=== PATIENT | female | born 1945 | race Caucasian/White ===

== ENCOUNTER 2021-03-13 13:39 | Inpatient (IN) | payer OTHER ==
[~2021-03-13] VITALS: Ht 157.5 cm; Wt 55.3 kg
[2021-03-13] VITALS (24 sets, daily range): BP systolic 90–173; BP diastolic 48–122
[~2021-03-13 13:39] MED LIST: PANTOPRAZOLE 80 MG in IV NS 0.9% 500 ML IV SCH
--- NOTE | 2021-03-13 13:40 | NUR ---
[id number] FOR AMS AFTER EATING LUNCH. LKW 1307. PATIENT OBTUNDED. ON 15LPM VIA NRB ON ARRIVAL. ASSISTED TO BED 8, ATTACHED TO THE SOFTWARE SOLUTIONS ARCHITECT. DR. DODSON AT BEDSIDE.
--- NOTE | 2021-03-13 13:45 | NUR ---
PREP FOR INTUBATION, MARSHALL AND ETOMIDATE GIVEN
--- NOTE | 2021-03-13 13:46 | NUR ---
INTUBATED SIZE 7.5 22CM ON THE LIP, + COLOR CHANGE, BILATERAL CHEST RISE.
[2021-03-13] MEDS ORDERED: PROPOFOL 100 ML ONE (13:48)
--- NOTE | 2021-03-13 13:51 | NUR ---
PATIENT TAKEN TO CT.
[2021-03-13] MEDS ORDERED: IOHEXOL-350 100 ML VIAL IV ONE (13:53)
[2021-03-13] MEDS ORDERED: CT SWABBABLE VALVE TRANS SET 1 EA INFUS.SET MC ONE (13:53)
[2021-03-13] MEDS ORDERED: IV NS 0.9% 250 ML IV ONE (13:54)
[2021-03-13 13:55] LABS: BASOPHILS # (AUTO) 0.1 K/uL (0.0-0.2); BASOPHILS % (AUTO) 0.9 % (0.0-2.0); EOSINOPHILS % (AUTO) 1.8 % (0.0-6.0); HEMATOCRIT 35 % (33-45); HEMOGLOBIN 11.6 g/dL (11.5-14.8); LYMPHOCYTES # (AUTO) 1.9 K/uL (0.8-4.8); LYMPHOCYTES % (AUTO) 20.2 % (20.0-44.0); MEAN CORPUSCULAR HGB CONC 33 g/dl (31.0-36.0); MEAN CORPUSCULAR VOLUME 91 fL (82-100); MONOCYTES # (AUTO) 0.9 K/uL (0.1-1.30); MONOCYTES % (AUTO) 10.1 % (2.0-12.0); NEUTROPHILS # (AUTO) 6.3 K/uL (1.8-8.9); PLATELET COUNT (AUTO) 480 K/uL (150-450); RED BLOOD CELL COUNT(AUTO) 3.84 MIL/uL (4.0-5.2); WHITE BLOOD COUNT (AUTO) 9.3 K/uL (4.3-11.0)
[2021-03-13] MEDS ORDERED: ACET-868 PO (13:58)
[2021-03-13] MEDS ORDERED: BACL10TA PO (13:58)
[2021-03-13] MEDS ORDERED: PANT40TA2 PO (13:58)
[2021-03-13] MEDS ORDERED: AMLO5TAB4 PO (13:58)
[2021-03-13] MEDS ORDERED: CYAN-51 PO (13:58)
[2021-03-13] MEDS ORDERED: MIRT7.5T10 PO (13:58)
[2021-03-13] MEDS ORDERED: ASCO-352 PO (13:58)
[2021-03-13] MEDS ORDERED: HYDR-4076 PO (13:58)
[2021-03-13] MEDS ORDERED: POLY17PO4 PO (13:58)
[2021-03-13] MEDS ORDERED: LEVE250T2 PO (13:58)
[2021-03-13] MEDS ORDERED: CLON0.5T4 PO (13:58)
[2021-03-13] MEDS ORDERED: LIDO30CR47 TP (13:58)
[2021-03-13] MEDS ORDERED: FERR325T23 PO (13:58)
[2021-03-13] MEDS ORDERED: FOLI0.4T6 PO (13:58)
[2021-03-13] MEDS ORDERED: SUCR1TAB PO (13:58)
[2021-03-13] MEDS ORDERED: ATOR40TA PO (13:58)
[2021-03-13] MEDS ORDERED: IPRA3AMP23 IH (13:58)
[2021-03-13] MEDS ORDERED: CARV6.252 PO (13:58)
[2021-03-13] MEDS ORDERED: QUET50TA PO (13:58)
[2021-03-13] MEDS ORDERED: APIX5TAB PO (13:58)
[2021-03-13] MEDS ORDERED: GABA-532 PO (13:58)
[2021-03-13 14:01] LABS: CARBON DIOXIDE 26 mmol/L (21-32); CHLORIDE 106 mmol/L (98-107); POTASSIUM 3.4 mmol/L (3.5-5.1); SODIUM SERUM 143 mmol/L (136-145)
[2021-03-13] MEDS ORDERED: COVI30VI IM (14:03)
[2021-03-13 14:07] LABS: GLUCOSE 176 mg/dL (74-106); UREA NITROGEN, BLOOD 20 mg/dL (7-18)
[2021-03-13 14:08] LABS: ALANINE AMINOTRANSFERASE 54 U/L (12-78); ALBUMIN 3.7 g/dL (3.4-5.0); ALKALINE PHOSPHATASE 162 U/L (46-116); ASPARTATE AMINOTRANSFERASE 58 U/L (15-37); BILIRUBIN,DIRECT 0.1 mg/dL (0.0-0.2); BILIRUBIN,TOTAL 0.3 mg/dL (0.2-1.0); CREATININE 1.3 mg/dL (0.6-1.3); TOTAL PROTEIN, SERUM 7.2 g/dL (6.4-8.2)
--- NOTE | 2021-03-13 14:20 | NUR ---
RT NOTE PT INTUBATED PER ER MD ORDER. 7.5 ETT @ 22 CM. CUFF INFLATED. ETT SECURE. BILATERAL CHEST RISE NOTED. VENTILATOR SETTINGS FOLLOW; AC 16 450 100% +5. AMBU BAG AT BED SIDE. ALARMS SET PER PROTOCOL AND AUDIBLE. VENTILATOR PLUGGED IN TO RED OUTLET. Addendum: 03/13/21 at 1423 by CALDERON SEXTON RT Amended: Links added.
[2021-03-13] MEDS ORDERED: LABETALOL 20 MG/4 ML VIAL IV ONE (14:30)
[2021-03-13] MEDS ORDERED: ROCURONIUM BROMIDE 50 MG/5 ML IV ONE ×2 (14:30→17:52)
[2021-03-13] MEDS ORDERED: ETOMIDATE 2 MG/ML VIAL IV ONE ×2 (14:30→17:52)
[2021-03-13] MEDS ORDERED: LEVETIRACETAM (500MG) 1,000 MG in IV NS 0.9% 100 ML IV SCH (14:30)
[2021-03-13] MEDS ORDERED: LORAZEPAM INJ 2 MG/ML VIAL IVP ONE (14:30)
[2021-03-13] MEDS ORDERED: LABETALOL HCL IV 100MG VIAL ONE (14:34)
[2021-03-13] MEDS ORDERED: LORAZEPAM INJ 2 MG/ML VIAL ONE (14:34)
--- NOTE | 2021-03-13 14:42 | NUR ---
DR. ORTIZ AT BEDSIDE.
--- NOTE | 2021-03-13 14:45 | NUR ---
NURSING SUP GAVE ICU BED 257.
--- NOTE | 2021-03-13 14:50 | NUR ---
BILL, SON CALLED ASKING ABOUT PT.
--- NOTE | 2021-03-13 14:56 | NUR ---
SECONDARY NUMBER FOR MANA DEMPSEY
--- NOTE | 2021-03-13 14:59 | NUR ---
RECEIVED ORDER FROM DR. ORTIZ TO INSERT NG-TUBE. NG-TUBE FR 16 INSERTED ON RIGHT NOSTRIL, TAPED AT 52CM ON THE NOSE TIP. PLACEMENT VERIFIED BY 2 NURSES.
[2021-03-13] MEDS ORDERED: ACETAMINOPHEN 325 MG TABLET PO PRN (15:00)
[2021-03-13] MEDS ORDERED: AMLODIPINE BESYLATE 5 MG TABLET PO SCH (15:00)
[2021-03-13 15:01] LABS: CHOLESTEROL 153 mg/dL (<200); HDL CHOLESTEROL 70 mg/dL (40-60); LDL 61 mg/dL (0-99); TRIGLYCERIDES 110 mg/dL (30-150)
[2021-03-13 15:08] LABS: ABG BASE EXCESS -1.5 mmol/L; ABG OXYGEN SATURATION 98.2 % (92.0-98.5); ABG PCO2 42.2 mmHg (35.0-45.0); ABG PH 7.369 (7.350-7.450); ABG PO2 177.5 mmHg (75.0-100.0); AaDO2 493.3 mmHg; COHb 0.3 % (0.5-1.5); MetHb 0.5 % (0.0-1.5); O2Hb 97.4 % (94.0-97.0); SITE, ABG Right Radial; VENT MODE, BG AC 16 450 100% +5
--- NOTE | 2021-03-13 15:11 | NUR ---
CALLED ICU TWICE, NURSE IS NOT AVAILABLE FOR REPORT.
--- NOTE | 2021-03-13 15:20 | NUR ---
DR. ORTIZ AT BEDSIDE FOR EVAL. ADMISSION ORDERS IN PLACED.
--- NOTE | 2021-03-13 15:29 | NUR ---
REPORT GIVEN TO KALLIE CEDEÑO FOR MIGUEL.
[2021-03-13] MEDS ORDERED: LABETALOL 20 MG/4 ML VIAL IV PRN (15:30)
[2021-03-13] MEDS ORDERED: IPRATROPIUM NEB FS 0.5 MG/2.5 ML AMPUL.NEB NEB PRN (16:00)
[2021-03-13] MEDS ORDERED: ALBUTEROL FS 2.5 MG/0.5 ML VIAL.NEB HHN PRN (16:00)
--- NOTE | 2021-03-13 16:00 | NUR ---
STONE PROCESSING MACHINE OPERATOR NOTES PATIENT ADMITTED FROM ER ETT/MECHANICAL VENT, NO SEDATION AT THIS TIME ACCORDING DR ORTIZ'S ORDER. PATIENTABLE TO MOVES LEGS AND ARMS WHEN TOUCHED. HR ON MONITOR SHOWS- SR- 57, BP -118/64. SKIN ASSESSMENT DONE, PICTURE TAKEN. NGT INTACT, AND CLAMPED. ARSHAD DRAINING LIGHT YELLOW OUTPUT. RECHECKED CIRCULATION BILATERAL WRIST. BED LACKED, SAFETY PRECAUTION MAINTAINED ALL THE TIME. WILL MONITORING.
--- NOTE | 2021-03-13 16:02 | NUR ---
PATIENT TRANSFERRED TO ICU ROOM 257 IN STABLE CONDITION. PATIENT REMAINS INTUBATED, OBTUNDED. NO SEDATIVE NEEDED AT THIS TIME, DR. ORTIZ AWARE. ENDORSED TO KALLIE CEDEÑO FOR MIGUEL.
[2021-03-13] MEDS: IV D5/0.45 NACL 1,000 ML IV PRN (16:45)
[2021-03-13] MEDS: PANTOPRAZOLE 40 MG VIAL IV SCH (16:48)
[2021-03-13] MEDS: SUCRALFATE 1 G TABLET NG SCH ×2 (16:49→17:00)
[2021-03-13] MEDS: PIPERACILLIN /TAZOBACTAM 3.375 G in IV D5W 50 ML IV SCH (16:56)
[2021-03-13] MEDS ORDERED: SUCRALFATE 1 G TABLET PO SCH (17:00)
[2021-03-13] MEDS ORDERED: LEVETIRACETAM (250 MG) 250 MG TABLET PO ONE (17:00)
[2021-03-13] MEDS ORDERED: APIXABAN 5 MG TABLET PO SCH (17:00)
[2021-03-13] MEDS ORDERED: CARVEDILOL 6.25 MG TABLET PO SCH (17:00)
--- NOTE | 2021-03-13 18:43 | NUR ---
RN NOTES PM CARE DONE , ADMINISTERED SCHEDULED MEDICATION, INFUSING D51/2 NS AT 100 ML/HR, ON LEFT HAND INTACT. PATIENT HAS NO SEDATION, NO ACUTE RESPIRATORY DISTRESS. ASSIST TURN AND REPOSTION. ENDORSED ONCOMING NURSE FOLLOW PLAN OF CARE.
--- NOTE | 2021-03-13 20:00 | NUR ---
RN NOTE PT RECEIVED IN BED INTUBATED, PT IS RESPONSIVE TO TOUCH, SATING 100%. PT MOUTH SUCTIONED AND REMOVED PIECES OF FOOD FROM MOUTH.PT HAS NG TUBE CLAMPED CHECKED FOR REPLACEMENT, BENCH ASSEMBLER BATTERY SHOWING SR WITH HR IN 60s.
--- NOTE | 2021-03-13 20:45 | NUR ---
PT BECAME VERY AGITATED ,TRYING TO SIT UP,SLIDING UP AND DOWN , INFORMED NED ALEJO REGARDING PT SITUATION AND PER DR MARINO NOTIFY DR NICHOLS .
[2021-03-13] MEDS ORDERED: LEVETIRACETAM (250 MG) 250 MG TABLET PO SCH (21:00)
--- NOTE | 2021-03-13 21:00 | NUR ---
PT BECAME VERY AGITATED ,TRYING TO SIT UP,SLIDING UP AND DOWN , INFORMED DR NICHOLS AND RECEIVED ORDER FOR PROPOFOL.
[2021-03-13] MEDS: PROPOFOL 100 ML IV PRN (21:25)
[2021-03-14] VITALS (34 sets, daily range): BP systolic 109–156; BP diastolic 43–97
[2021-03-14 00:59] LABS: BILIRUBIN,URINE NEGATIVE (NEGATIVE); COLOR,URINE YELLOW (YELLOW); LEUKOCYTE ESTERASE ,URINE NEGATIVE (NEGATIVE); NITRITE, URINE NEGATIVE (NEGATIVE); PH,URINE 6.5 (5.0-8.0); PROTEIN,URINE 30 mg/dl (NEGATIVE); UGLUCOSE NEGATIVE (NEGATIVE); UROBILINOGEN,URINE 0.2 EU/dL (0.2)
[2021-03-14 01:32] LABS: BACTERIA,URINE None seen /HPF (None Seen); WBC,URINE 0-2 /HPF (0-3)
[2021-03-14 01:33] LABS: MUCUS,URINE Few /LPF (None Seen); SQUAMOUS EPITHELIAL CELL,UR None Seen /HPF (None Seen)
[2021-03-14] MEDS: IV D5/0.45 NACL 1,000 ML IV PRN ×2 (02:00→12:01)
[2021-03-14 04:35] LABS: BASOPHILS % (AUTO) 0.4 % (0.0-2.0); EOSINOPHILS % (AUTO) 1.2 % (0.0-6.0); HEMATOCRIT 26 % (33-45); HEMOGLOBIN 8.9 g/dL (11.5-14.8); LYMPHOCYTES # (AUTO) 0.7 K/uL (0.8-4.8); LYMPHOCYTES % (AUTO) 6.3 % (20.0-44.0); MEAN CORPUSCULAR HGB CONC 34 g/dl (31.0-36.0); MEAN CORPUSCULAR VOLUME 91 fL (82-100); MONOCYTES # (AUTO) 0.7 K/uL (0.1-1.30); MONOCYTES % (AUTO) 7.1 % (2.0-12.0); PLATELET COUNT (AUTO) 353 K/uL (150-450); RED BLOOD CELL COUNT(AUTO) 2.88 MIL/uL (4.0-5.2); WHITE BLOOD COUNT (AUTO) 10.5 K/uL (4.3-11.0)
[2021-03-14 04:53] LABS: ALBUMIN 2.6 g/dL (3.4-5.0); BILIRUBIN,TOTAL 0.4 mg/dL (0.2-1.0); CALCIUM, SERUM 7.9 mg/dL (8.5-10.1); TOTAL PROTEIN, SERUM 5.3 g/dL (6.4-8.2)
[2021-03-14 05:03] LABS: MAGNESIUM 1.2 mg/dL (1.8-2.4); POTASSIUM 2.4 mmol/L (3.5-5.1)
--- NOTE | 2021-03-14 05:30 | NUR ---
RECEIVED CRITICAL LAB FOR K 2.4 AND MG 1.2. INFORMED DR HAMPTON AND RECEIVED ORDER FOR 4 BAGS OF K, AND 4 BAGS OF MG. PER GIVE MG FIRST.
[2021-03-14] MEDS: Magnesium 1GM/D5W 100ML PREMIX 100 ML IV SCH ×4 (06:02→09:46)
[2021-03-14] MEDS: PIPERACILLIN /TAZOBACTAM 3.375 G in IV D5W 50 ML IV SCH ×5 (06:09→23:29)
[2021-03-14] MEDS: PROPOFOL 100 ML IV PRN (06:57)
--- NOTE | 2021-03-14 07:11 | NUR ---
RN NOTE REPORT GIVEN TO ONCOMING SHIFT FOR MIGUEL.
[2021-03-14] MEDS ORDERED: ACETAMINOPHEN LIQUID 325 MG/10.1 ML UDC NG PRN (07:30)
[2021-03-14] MEDS: POTASSIUM CL. PREMIX PERIPHER. 50 ML IV SCH ×4 (07:50→10:47)
[2021-03-14] MEDS ORDERED: POTASSIUM CHLORIDE 10 MEQ/50 ML PREMIXED IVPB FOR PERIPHERAL LINE IV ONE (09:00)
[2021-03-14] MEDS ORDERED: POTASSIUM CHLORIDE 20 MEQ POWDER PACKET NG ONE (09:00)
[2021-03-14] MEDS ORDERED: DC PROPOFOL WHEN EXTUBATED XX PRN (09:00)
[2021-03-14] MEDS ORDERED: Magnesium 1GM/D5W 100ML PREMIX 100 ML IV SCH (09:00)
[2021-03-14] MEDS ORDERED: LEVETIRACETAM SOL (5 ML) 100 MG/ML UDC NG SCH (09:00)
[2021-03-14] MEDS: CARVEDILOL 6.25 MG TABLET NG SCH ×2 (09:00→17:22)
[2021-03-14 09:09] LABS: ABG OXYGEN SATURATION 97.8 % (92.0-98.5); ABG PCO2 39.7 mmHg (35.0-45.0); ABG PO2 111.8 mmHg (75.0-100.0); AaDO2 127.7 mmHg; COHb 0.3 % (0.5-1.5); MetHb 0.2 % (0.0-1.5); O2Hb 97.3 % (94.0-97.0); PEEP,BG 5 cm H2O; SITE, ABG Right Radial; VT, ABG 450 mL
[2021-03-14] MEDS: SUCRALFATE 1 G/10 ML UDC NG SCH ×2 (09:17→17:22)
[2021-03-14] MEDS: PANTOPRAZOLE 40 MG VIAL IV SCH (09:18)
[2021-03-14] MEDS: AMLODIPINE BESYLATE 5 MG TABLET NG SCH (09:22)
[2021-03-14] MEDS: APIXABAN 5 MG TABLET NG SCH ×2 (09:25→17:23)
--- NOTE | 2021-03-14 09:39 | NUR ---
on weaning trial per dr. pascual. simv 4 ps 15 peep+5 fio2 40%. pt. is awake and follow commands. Addendum: 03/14/21 at 0941 by JAQUELINE DEE RT Amended: Links added.
--- NOTE | 2021-03-14 09:49 | NUR ---
RN NOTE 0715: Received patient with ETT to vent, no respiratory distress noted at this time. On Diprivan @ 25mcg, able to arouse through voice. SB 50's on the monitor. With YVETTE midline intact. Right NGT intact, clamped. Mg supp ongoing. IVF infusing as ordered. 0850: S/E by Dr. Melissa, with order of additional K supp. 0910: S/E by Dr. Watkins and Dr. Melissa, Turned off Diprivan totally per for plan of weaning. 0930: S/E by , patient is able to follow commands. Placed by RT to SIMV mode. 0955: ABG resulted, aware, with order of extubation. 1000: RT extubated patient, patient has garbled voice but understandable when repeated. Able to cough. 1015: Son at bedside, updated re: patient. Patietn does not remeber what happened, son reoriented her. Removed LOOP CUTTER restraints, informed not to remove her NGT.
[2021-03-14 09:56] LABS: ABG BASE EXCESS -0.9 mmol/L; ABG PH 7.418 (7.350-7.450); ABG PO2 127.1 mmHg (75.0-100.0); AaDO2 115.6 mmHg; COHb 0.2 % (0.5-1.5); MetHb 0.3 % (0.0-1.5); O2Hb 97.5 % (94.0-97.0); PEEP,BG 5 cm H2O; SITE, ABG Right Femoral; VENT MODE, BG SIMV 4 / PS 15; VT, ABG 450 mL
--- NOTE | 2021-03-14 10:00 | NUR ---
pt. is awake and follow commands extubated @ [address] into nasal cannula @ 1 lpm o2 flow. spo2 99% rate 18 hr 73 bpm no increase work of breathing noted. Addendum: 03/14/21 at 1011 by JAQUELINE DEE RT Amended: Links added.
--- NOTE | 2021-03-14 19:15 | NUR ---
MOTOR BRAKEMAN PT REQUESTING TO S/W DAUGHTER IVONNE. CALL PLACED TO DAUGHTER. PT LOOKING FOR EYE GLASSES NOT DOCUMENTED IN BELONGINGS. CALLED [facility] AND THEY ARE UNABLE TO CHECK ROOM STATING IT WAS LOCKED BY GIS PROGRAMMER. PER PT DAUGHTER WILL CALL [facility] WELL.
[2021-03-14] MEDS: LEVETIRACETAM SOL (5 ML) 100 MG/ML UDC PO SCH (21:04)
--- NOTE | 2021-03-14 22:00 | NUR ---
CALIBRATION TESTER PT SLEEPING DECLINES TO TURN.
[2021-03-14] MEDS ORDERED: INSULIN REGULAR, HUMAN 100 UNIT/ML 3 ML VIAL SQ PRN (22:30)
[2021-03-14] MEDS ORDERED: DEXTROSE 50%-WATER 50 ML DISP.SYRIN IV PRN (22:30)
[2021-03-15] VITALS (14 sets, daily range): BP systolic 104–144; BP diastolic 43–73
[2021-03-15] MEDS: IV D5/0.45 NACL 1,000 ML IV PRN (01:30)
[2021-03-15 04:20] LABS: BASOPHILS % (AUTO) 0.3 % (0.0-2.0); EOSINOPHILS % (AUTO) 0.9 % (0.0-6.0); HEMATOCRIT 27 % (33-45); LYMPHOCYTES # (AUTO) 0.9 K/uL (0.8-4.8); LYMPHOCYTES % (AUTO) 6.6 % (20.0-44.0); MEAN CORPUSCULAR HGB CONC 34 g/dl (31.0-36.0); MEAN CORPUSCULAR VOLUME 89 fL (82-100); MONOCYTES % (AUTO) 7.3 % (2.0-12.0); NEUTROPHILS # (AUTO) 12.1 K/uL (1.8-8.9); NEUTROPHILS % (AUTO) 84.9 % (43.0-81.0); PLATELET COUNT (AUTO) 379 K/uL (150-450); RED BLOOD CELL COUNT(AUTO) 2.97 MIL/uL (4.0-5.2); WHITE BLOOD COUNT (AUTO) 14.2 K/uL (4.3-11.0)
[2021-03-15 04:44] LABS: ALANINE AMINOTRANSFERASE 32 U/L (12-78); ALBUMIN 2.5 g/dL (3.4-5.0); ALKALINE PHOSPHATASE 112 U/L (46-116); ASPARTATE AMINOTRANSFERASE 23 U/L (15-37); BILIRUBIN,TOTAL 0.6 mg/dL (0.2-1.0); CALCIUM, SERUM 7.8 mg/dL (8.5-10.1); CARBON DIOXIDE 29 mmol/L (21-32); CHLORIDE 107 mmol/L (98-107); CREATININE 1.1 mg/dL (0.6-1.3); GLUCOSE 108 mg/dL (74-106); MAGNESIUM 1.6 mg/dL (1.8-2.4); PHOSPHORUS 2.6 mg/dL (2.5-4.9); POTASSIUM 2.9 mmol/L (3.5-5.1); SODIUM SERUM 141 mmol/L (136-145); TOTAL PROTEIN, SERUM 5.6 g/dL (6.4-8.2); UREA NITROGEN, BLOOD 9 mg/dL (7-18)
[2021-03-15] MEDS: PIPERACILLIN /TAZOBACTAM 3.375 G in IV D5W 50 ML IV SCH ×3 (05:05→18:14)
[2021-03-15] MEDS ORDERED: BLOOD SUGAR DIAGNOSTIC 1 EACH STRIP IN SCH (07:30)
[2021-03-15] MEDS: SUCRALFATE 1 G/10 ML UDC NG SCH ×2 (08:52→18:01)
[2021-03-15] MEDS: POTASSIUM CHLORIDE 20 MEQ POWDER PACKET NG SCH ×3 (08:52→10:37)
[2021-03-15] MEDS: PANTOPRAZOLE 40 MG/PACK PACK NG SCH (08:52)
[2021-03-15] MEDS: LEVETIRACETAM SOL (5 ML) 100 MG/ML UDC PO SCH ×2 (08:52→21:13)
[2021-03-15] MEDS: CARVEDILOL 6.25 MG TABLET NG SCH ×2 (08:53→18:01)
[2021-03-15] MEDS: AMLODIPINE BESYLATE 5 MG TABLET NG SCH (08:53)
[2021-03-15] MEDS: Magnesium 1GM/D5W 100ML PREMIX 100 ML IV SCH ×2 (08:56→10:16)
[2021-03-15] MEDS: APIXABAN 5 MG TABLET NG SCH ×2 (08:56→18:05)
[2021-03-15] MEDS ORDERED: Magnesium 1GM/D5W 100ML PREMIX 100 ML IV SCH (09:00)
[2021-03-15] MEDS ORDERED: IV NS 0.9% 250 ML IV ONE (09:28)
[2021-03-15] MEDS ORDERED: IOHEXOL-300 100 ML VIAL IV ONE (09:28)
[2021-03-15] MEDS ORDERED: POTASSIUM CHLORIDE 20 MEQ POWDER PACKET PO ONE (09:30)
--- NOTE | 2021-03-15 11:15 | NUR ---
MS RN NOTE PATIENT RECEIVED FROM ICU ENDORSED AND ACCOMPANIED BY GALA PATEL VIA WHEELCHAIR. PATIENT TRANSFERRED TO BED AND COMFORT MEASURES PROVIDED. PATIENT IS ALERT AND ORIENTED X 2-3 BUT FORGETFUL WITH NO SIGNS OF DISTRESS. WITH UNLABORED AND REGULAR BREATHING ON ROOM AIR SATURATING AT 97%. COMFORT MEASURES PROVIDED. PATIENT WITH IV ACCESS ON RIGHT ARM MIDLINE, LEFT AC G18 AND LEFT WRIST. G20 WITH IVF OF D5 1/2 NS AT 75ML/HR. PATIENT HAD CHEST CT WITH AND WITHOUT CONTRAST PRIOR TO TRANSFER. PATIENT ALSO HAD LO POTASSIUM AND MAGNESIUM LEVELS THAT WERE CORRECTED AT ICU. PATIENT IS FOR ST EVALUATION FOR SWALLOWING AND FOOD TOLERANCE. PATIENT WITH ARSHAD CATHETER TO URINE BAG. COMFORT MEASURES PROVIDED. SAFETY ENSURED, BED LOCKED AND AT LOWEST POSITION, SIDERAILS RASED. CALL LIGHT AND BEDSIDE TABLE WITHIN REACH AT ALL TIMES. Addendum: 03/15/21 at 2008 by ROXIE DUQUE RN WILL CONTINUE TO MONITOR PATIENT.
--- NOTE | 2021-03-15 11:28 | NUR ---
RN NOTE 0715: Received patient awake, A/Ox3 but noted with confusion AEB asking to get her , reoriented patient. On 1LPM via NC, placed on room air, will continue to monitor, sat 95% at this time. With YVETTE midline intact. IVF infusing as ordered. Lynn cath intact, noted with good UOP amount, clear pale yellow. 0840: Assisted patient to bathroom via wheelchair, needed minimal assistance. 0900: S/E by Dr. Watkins and Dr. Melissa, awaiting CT chest. 0950: Went to CT chest with contrast, patient tolerated well. 1100: Transferred patient to [facility] via wheelchair, no significant changes noted. VSS. Son made aware via phone re: transfer
--- NOTE | 2021-03-15 18:55 | NUR ---
BUSHING PRESS OPERATOR CLOSING NOTE PATIENT IS ALERT AND ORIENTED X 2-3 BUT FORGETFUL WITH NO SIGNS OF DISTRESS. WITH UNLABORED AND REGULAR BREATHING ON ROOM AIR SATURATING AT 97%. COMFORT MEASURES PROVIDED. PATIENT WITH IV ACCESS ON RIGHT ARM MIDLINE AND LEFT WRIST. G20 WITH IVF OF D5 1/2 NS AT 75ML/HR. PATIENT WAS SEEN BY ST WITH ORDER TO KEEP PATIENT ON PUREED DIET WITH THIN LIQUIDS RELATED TO RISK FOR ASPIRATION. PATIENT WITH ARSHAD CATHETER TO URINE BAG. COMFORT MEASURES PROVIDED. SAFETY ENSURED, BED LOCKED AND AT LOWEST POSITION, SIDERAILS RASED. CALL LIGHT AND BEDSIDE TABLE WITHIN REACH AT ALL TIMES. ENDORSED PATIENT FOR CONTINUITY OF CARE.
--- NOTE | 2021-03-15 19:30 | NUR ---
TECHNICAL SUPPORT REPRESENTATIVE OPENING NOTES: RECEIVED PATIENT IN BED, SLEEPING EASILY AROUSABLE, NO S/S OF DISTRESS NOTED. CALL LIGHT PLACED WITHIN REACH AND INSTRUCTED. BED IN LOWEST AND LOCKED POSITION. BED ALARM ON. NO COMPLAIN OF PAIN.WITH ARSHAD CATHETER INTACT, DRAINING CLEAR YELLOW URINE OUTPUT. SEIZURE PRECAUTION, SIDERAILS PADDED.
--- NOTE | 2021-03-15 20:22 | NUR ---
PATIENT IS A/O X3-4.
[2021-03-16] VITALS (7 sets, daily range): BP systolic 112–146; BP diastolic 42–70
[2021-03-16] MEDS: IV D5/0.45 NACL 1,000 ML IV PRN (00:13)
[2021-03-16] MEDS: PIPERACILLIN /TAZOBACTAM 3.375 G in IV D5W 50 ML IV SCH ×3 (00:14→13:22)
[2021-03-16 06:12] LABS: BASOPHILS % (AUTO) 0.4 % (0.0-2.0); EOSINOPHILS % (AUTO) 1.6 % (0.0-6.0); HEMATOCRIT 27 % (33-45); HEMOGLOBIN 8.9 g/dL (11.5-14.8); LYMPHOCYTES % (AUTO) 8.9 % (20.0-44.0); MEAN CORPUSCULAR HGB CONC 33 g/dl (31.0-36.0); MEAN CORPUSCULAR VOLUME 90 fL (82-100); MONOCYTES # (AUTO) 0.9 K/uL (0.1-1.30); MONOCYTES % (AUTO) 8.8 % (2.0-12.0); NEUTROPHILS # (AUTO) 8.7 K/uL (1.8-8.9); NEUTROPHILS % (AUTO) 80.3 % (43.0-81.0); PLATELET COUNT (AUTO) 363 K/uL (150-450); RED BLOOD CELL COUNT(AUTO) 2.98 MIL/uL (4.0-5.2); WHITE BLOOD COUNT (AUTO) 10.8 K/uL (4.3-11.0)
[2021-03-16 06:37] LABS: CALCIUM, SERUM 8.1 mg/dL (8.5-10.1); CREATININE 1.1 mg/dL (0.6-1.3); MAGNESIUM 1.7 mg/dL (1.8-2.4); POTASSIUM 3.2 mmol/L (3.5-5.1)
--- NOTE | 2021-03-16 08:25 | NUR ---
TELE/RN OPENING NOTES RECEIVED PATIENT IN BED, AWAKE, ALERT AND ORIENTED X2-3. SOME CONFUSION NOTED. HARD OF HEARING. NO S/S OF DISTRESS NOTED. CALL LIGHT PLACED WITHIN REACH. BED IN LOWEST AND LOCKED POSITION. BED ALARM ON. NO COMPLAINTS OF PAIN. SEIZURE PRECAUTION, SIDERAILS PADDED. WILL CONTINUE TO MONITOR PATIENT.
[2021-03-16] MEDS: Magnesium 1GM/D5W 100ML PREMIX 100 ML IV SCH ×2 (08:56→09:18)
[2021-03-16] MEDS ORDERED: POTASSIUM CHLORIDE 20 MEQ POWDER PACKET GT ONE (09:00)
[2021-03-16] MEDS: SUCRALFATE 1 G/10 ML UDC NG SCH (09:18)
[2021-03-16] MEDS: LEVETIRACETAM SOL (5 ML) 100 MG/ML UDC PO SCH (09:19)
[2021-03-16] MEDS: PANTOPRAZOLE 40 MG/PACK PACK NG SCH (09:20)
[2021-03-16] MEDS: APIXABAN 5 MG TABLET NG SCH (09:21)
[2021-03-16] MEDS: AMLODIPINE BESYLATE 5 MG TABLET NG SCH (09:21)
[2021-03-16] MEDS: CARVEDILOL 6.25 MG TABLET NG SCH (09:23)
[2021-03-16] MEDS ORDERED: ACETAMINOPHEN 650 MG/20.3 ML UDC NG PRN (09:30)
[2021-03-16] MEDS ORDERED: AMLO-212 NG (10:34)
[2021-03-16] MEDS ORDERED: CARV6.252 NG (10:34)
[2021-03-16] MEDS ORDERED: ALBU2.5V13 HHN (10:34)
[2021-03-16] MEDS ORDERED: APIX5TAB NG (10:34)
[2021-03-16] MEDS ORDERED: AMOX-427 PO (10:34)
[2021-03-16] MEDS ORDERED: SUCR1ORA6 NG (10:34)
[2021-03-16] MEDS ORDERED: LEVE100S PO (10:34)
[2021-03-16] MEDS ORDERED: IPRA0.2S9 NEB (10:34)
[2021-03-16] MEDS ORDERED: PANT40SU2 NG (10:34)
--- NOTE | 2021-03-16 16:37 | NUR ---
TELE/EMPLOYEE RELATIONS CONSULTANT NOTES PATIENT IS MEDICALLY STABLE. MD ORDERED DISCHARGE TO SNF. PATIENT IS ALERT AND ORIENTED X3, ABLE TO MAKE NEEDS KNOWN. FORGETFULNESS NOTED SOMETIMES. ARSHAD CATHETER TAKEN OUT BEFORE DISCHARGE. DISCHARGE INSTRUCTIONS GIVEN TO THE PATIENT AND ABLE TO VERBALIZED UNDERSTANDING. ALL BELONGINGS ACCOUNTED FOR. PATIENT IS GOING TO [facility] WITH ENDORSEMENTS PASSED ON TO ZORAIDA CARROLL CHARGE NURSE AT THE SNF. PATIENT WAS PICKED UP AND TRANSPORTED TO THE SNF BY THE EMT.
== END 2021-03-16 16:30 | DRG 208 ==
LOC: ER 13:49 → ICU 15:42 → TELE 03-15 11:11
PROVIDERS: ADMIT Internal Medicine; ATTEND Internal Medicine
PROC: 5A1945Z Respiratory Ventilation, 24-96 Consecutive Hours (ICD-10-PCS; principal; 2021-03-13)
PROC: 0BH18EZ Insertion of Endotracheal Airway into Trachea, Via Natural or Artificial Opening Endoscopic (ICD-10-PCS; 2021-03-13)
PROC: 05H933Z Insertion of Infusion Device into Right Brachial Vein, Percutaneous Approach (ICD-10-PCS; 2021-03-13)
DX: J69.0 Pneumonitis due to inhalation of food and vomit (principal); J96.00 Acute respiratory failure, unspecified whether with hypoxia or hypercapnia; G93.41 Metabolic encephalopathy; I48.20 Chronic atrial fibrillation, unspecified; G93.1 Anoxic brain damage, not elsewhere classified; J98.11 Atelectasis; G40.909 Epilepsy, unspecified, not intractable, without status epilepticus; I11.0 Hypertensive heart disease with heart failure; J44.9 Chronic obstructive pulmonary disease, unspecified; G51.0 Bell's palsy; E83.42 Hypomagnesemia; F17.210 Nicotine dependence, cigarettes, uncomplicated; Z79.899 Other long term (current) drug therapy; I48.0 Paroxysmal atrial fibrillation; Z79.01 Long term (current) use of anticoagulants; D64.9 Anemia, unspecified; F32.9 Major depressive disorder, single episode, unspecified; I73.9 Peripheral vascular disease, unspecified; Z79.51 Long term (current) use of inhaled steroids; I50.9 Heart failure, unspecified; E87.6 Hypokalemia; R91.1 Solitary pulmonary nodule; Z98.890 Other specified postprocedural states; F17.200 Nicotine dependence, unspecified, uncomplicated
CPT/HCPCS: 31720; 36415; 36600; 70450-TC; 70496-TC; 70498-TC; 71045-TC; 71260-TC; 74018; 80048-TC; 80053-TC; 80061-TC; 80076-TC; 81001; 82803-TC; 82962-TC; 83540-TC; 83605-TC; 83735-TC; 84100-TC; 84484-TC; 85025-TC; 85730-TC; 86850-TC; 87040-TC; 87081-TC; 92526; 92611-TC; 93307-TC; 94002-TC; 94003-TC; 94799-TC; 97116-TC; 97530-TC; 99082-TC; C9113; C9803; G0378; J1953; J2060; J2543; J3475; J3480; J3490; J7030; J7050; J7060; Q9967